=== PATIENT | female | born 1995 | race Caucasian/White ===

== ENCOUNTER 2019-04-11 14:57 | Outpatient (CLI) | payer OTHER ==
--- NOTE | 2019-04-12 20:38 | Ultrasound Report ---
Reason: TEST POSITIVE Procedure Date: 04/11/2019 Accession Number: [id number] / [id number] Procedure: US - OB First Trimester CPT Code: Final Report FULL RESULT: EXAM: FIRST TRIMESTER OBSTETRIC ULTRASOUND EXAM DATE: 04/11/2019 03:50 PM. CLINICAL HISTORY: TEST POSITIVE. LMP: 12/30/2018. COMPARISONS: None. TECHNIQUE: Transabdominal and transvaginal ultrasound examination with static image documentation. CLINICAL DATES: EGA 14 weeks 4 days with MARIANNE 10/06/2019 based on LMP. ASSESSMENT: Gestational Sac: Single intrauterine. Mean gestational sac diameter: 5.9 cm = 12 weeks. Embryo: CRL (crown-rump length) 7.14 cm = 13 weeks 2 days. Cardiac activity: 170 beats per minute. Yolk sac: Not visualized. Amniotic fluid: Within normal limits.. Placenta: Posterior placental low-lying. Inferior margin placenta 6.6 mm from the internal cervical os (image 64). Other: No perigestational fluid collection demonstrated. MATERNAL STRUCTURES: Uterus: Anteverted. Unremarkable. Cervix: Closed. Cervix length 3 cm transvaginal imaging. Right Ovary/Adnexa: The ovary measures 2.8 x 1.6 x 2.3 cm, volume 5.4 cc. Unremarkable. Left Ovary/Adnexa: The ovary measures 2.2 x 2.7 x 1.7 cm, volume 5.2 cc. Left ovary 1.5 x 1.6 x 1.6 cm corpus luteum cyst. Free Fluid: None. Other: None. IMPRESSION: 1. Single living intrauterine at EGA 13 weeks 2 days with MARIANNE 10/15/2019 based on crown-rump length, which is 1 week 2 days behind dates by LMP 12/30/2018. 2. Assigned dating is MARIANNE 10/06/2019 based on LMP. 3. Posterior low-lying placenta. RADIA
== END 2019-04-11 14:58 | disposition home or self-care (01) ==
LOC: DI 14:57 → MERGE 15:30
PROVIDERS: ATTEND Obstetrics & Gynecology
DX: Z32.01 Encounter for pregnancy test, result positive (principal); O44.41 Low lying placenta NOS or without hemorrhage, first trimester; Z3A.13 13 weeks gestation of pregnancy
CPT/HCPCS: 76801; 76817

== ENCOUNTER 2019-04-25 08:00 | Outpatient (CLI) | payer OTHER ==
[2019-04-25 21:58] LABS: TRICHOMONAS VAGINALIS DNA NEGATIVE (NEGATIVE)
== END 2019-04-25 23:59 | disposition home or self-care (01) ==
LOC: LAB.R 08:00
PROVIDERS: ATTEND Obstetrics & Gynecology
DX: Z36.89 Encounter for other specified antenatal screening (principal)
CPT/HCPCS: 87491; 87591; 87661

== ENCOUNTER 2019-04-25 13:03 | Outpatient (CLI) | payer OTHER ==
[2019-04-25 13:18] LABS: MUDS CUTOFF CONCENTRATIONS CUTOFF CONC BELOW:
[2019-04-25 13:25] LABS: BASOPHILS % (AUTO) 0.4 %; EOSINOPHILS # (AUTO) 0.1 10^3/uL (0.0-0.7); EOSINOPHILS % (AUTO) 0.9 %; HGB - HEMOGLOBIN 13.4 g/dL (12.0-16.0); LYMPHOCYTES # (AUTO) 1.7 10^3/uL (1.5-3.5); MEAN CORPUSCULAR HEMOGLOBIN 30.9 pg (27.0-31.0); MEAN CORPUSCULAR HGB CONC 35.5 g/dL (32.0-36.0); MEAN CORPUSCULAR VOLUME 87.1 fL (81.0-99.0); MEAN PLATELET VOLUME 10.7 fL (7.9-10.8); MONOCYTES # (AUTO) 0.6 10^3/uL (0.0-1.0); MONOCYTES % (AUTO) 5.1 %; NEUTROPHILS # (AUTO) 8.7 10^3/uL (1.5-6.6); NEUTROPHILS % (AUTO) 77.9 %; PLT - PLATELET COUNT 188 10^3/uL (130-450); RED BLOOD COUNT 4.33 10^6/uL (4.20-5.40); RED CELL DISTRIBUTION WIDTH 12.6 % (12.0-15.0); WHITE BLOOD COUNT 11.2 x10^3/uL (4.8-10.8)
[2019-04-25 13:27] LABS: BILIRUBIN,URINE NEGATIVE (NEGATIVE); GLUCOSE, URINE (UA) NEGATIVE (NEGATIVE); KETONES,URINE (UA) NEGATIVE (NEGATIVE); LEUKOCYTE ESTERASE, URINE NEGATIVE (NEGATIVE); NITRITE,URINE NEGATIVE (NEGATIVE); OCCULT BLOOD,URINE NEGATIVE (NEGATIVE); PROTEIN,URINE NEGATIVE (NEGATIVE); UROBILINOGEN,URINE 1 (NORMAL) E.U./dL (NORMAL)
[2019-04-25 13:44] LABS: BACTERIA,URINE Rare /HPF (None Seen); CLARITY,URINE CLEAR (CLEAR); RBC,URINE 0-5 /HPF (0-5); SQUAMOUS EPITHELIAL CELL,UR FEW Squamous (<= Few)
[2019-04-25 13:45] LABS: AMPHETAMINE SCREEN,URINE NEGATIVE (NEGATIVE); BENZODIAZEPINES SCREEN, URINE NEGATIVE (NEGATIVE); COCAINE SCREEN URINE NEGATIVE (NEGATIVE); METHADONE SCREEN, URINE NEGATIVE (NEGATIVE); METHAMPHETAMINES SCREEN, URINE NEGATIVE (NEGATIVE); OPIATE SCREEN, URINE NEGATIVE (NEGATIVE); OXYCODONE SCREEN, URINE NEGATIVE (NEGATIVE); PROPOXYPHENE SCREEN, URINE NEGATIVE (NEGATIVE); TRICYCLIC ANTIDEPRESSANT,URINE NEGATIVE (NEGATIVE)
[2019-04-26 11:33] LABS: HIV AG/AB 4TH GEN NON-REACTIVE (NON-REACTIVE)
[2019-04-26 12:42] LABS: HEPATITIS C ANTIBODY NON-REACTIVE (NON-REACTIVE)
[2019-04-27 14:23] LABS: HEPATITIS B SURFACE ANTIGEN NON-REACTIVE (NON-REACTIVE)
== END 2019-04-25 13:04 | disposition home or self-care (01) ==
LOC: LAB 13:03
PROVIDERS: ATTEND Obstetrics & Gynecology
DX: Z36.89 Encounter for other specified antenatal screening (principal)
CPT/HCPCS: 36415; 80306; 81001; 81599; 85025; 86592; 86762; 86803; 86850; 86900; 86901; 87086; 87340; 87389

== ENCOUNTER 2019-05-23 14:42 | Outpatient (CLI) | payer OTHER ==
--- NOTE | 2019-05-25 12:19 | Ultrasound Report ---
Reason: SCREENING Procedure Date: 05/23/2019 Accession Number: [id number] / [id number] Procedure: US - OB Detailed Eval CPT Code: Final Report FULL RESULT: EXAM: COMPLETE OBSTETRICAL ULTRASOUND EXAM DATE: 05/23/2019 04:50 PM. CLINICAL HISTORY: anatomic survey. COMPARISON: OB FIRST TRIMESTER 04/11/2019 3:10 PM. TECHNIQUE: Real-time sonographic evaluation of the fetus performed by the engine designer. Multiple real estate representative static images were saved for review. DATING: Established EGA 20 weeks 1 day with MARIANNE 10/09/2019 based on provided working due date. EGA 20 weeks 4 days with MARIANNE 10/06/2019 based on LMP/first ultrasound. EGA 19 weeks 6 days with MARIANNE 10/11/2019 based on the current ultrasound. GENERAL EVALUATION Ricks . Cardiac activity: 153 bpm. movement: Very active. Presentation: Variable. Placenta: Posterior position. No evidence for previa. Umbilical cord: Limited visualization of the umbilical cord, 3 vessel cord is not clearly visualized, likely due to motion. Central placental cord origin. Amniotic fluid: Subjectively normal. MVP 4.9 cm. BIOMETRY Bi-Parietal Diameter (BPD): 4.4 cm, 19 weeks 3 days. Head Circumference (HC): 17.6 cm, 20 weeks 1 day. Abdominal Circumference (AC): 14 cm, 19 weeks 3 days. Femur Length (FL): 3.4 cm, 20 weeks 4 days. Estimated Weight: 322 g, 34th percentile for 20 weeks 1 day. ANATOMY The anatomy survey is markedly limited by position and motion as well as early gestational age. The nuchal fold, profile view/nasal bone, nose and lips, open hands, four-chamber heart, kidneys, entire spine, upper and lower extremities as well as leg foot relationships are not adequately visualized. The choroid plexus, lateral ventricles, midline falx, cisterna magna, cerebellum, coronal face, stomach and situs, ventricular outflow tracts, relationship between heart, stomach and bladder, diaphragm, bladder are adequately visualized and normal. MATERNAL STRUCTURES Uterus: Unremarkable. Cervix: Long and closed. Transabdominal length 4.1 cm. Right ovary/adnexa: Unremarkable. Left ovary/adnexa: Unremarkable. Free fluid: None. IMPRESSION: 1. Ricks live intrauterine with gestational age 20 weeks 1 day based on working due date. 2. Estimated weight is within expected limits for assigned dating. 3. Limited evaluation due to early gestational age and very active fetus. Adequately visualized structures are normal. Recommend repeat imaging for anatomy survey for completion in 2 weeks. RADIA
== END 2019-05-23 14:43 | disposition home or self-care (01) ==
LOC: DI 14:42
PROVIDERS: ATTEND Obstetrics & Gynecology
DX: Z36.89 Encounter for other specified antenatal screening (principal)
CPT/HCPCS: 76811

== ENCOUNTER 2019-05-30 08:00 | Outpatient (CLI) | payer OTHER ==
[2019-05-30 20:39] LABS: CANDIDA GROUP DNA NEGATIVE (NEGATIVE); CANDIDA KRUSEI DNA NEGATIVE (NEGATIVE); TRICHOMONAS VAGINALIS DNA NEGATIVE (NEGATIVE)
== END 2019-05-30 23:59 | disposition home or self-care (01) ==
LOC: LAB.R 08:00
PROVIDERS: ATTEND Nurse Practitioner Obstetrics & Gynecology
DX: N89.8 Other specified noninflammatory disorders of vagina (principal)
CPT/HCPCS: 87661; 87801

== ENCOUNTER 2019-05-30 21:33 | Outpatient (CLI) | payer OTHER ==
--- NOTE | 2019-05-31 03:43 | Ultrasound Report ---
Reason: SCREENING, FOLLOW UP TO ANATOMY SCREEN Procedure Date: 05/30/2019 Accession Number: [id number] / [id number] Procedure: US - OB F/U or Repeat CPT Code: Final Report FULL RESULT: EXAM: FOLLOW-UP OBSTETRICAL ULTRASOUND EXAM DATE: 05/30/2019 11:50 PM. CLINICAL HISTORY: SCREENING, FOLLOW UP TO ANATOMY SCREEN. COMPARISON: 05/23/2019. TECHNIQUE: Real-time sonographic evaluation of the fetus performed by the metal turner. Multiple payable representative static images were saved for review. DATING: Established EGA 21 weeks 4 days with MARIANNE 10/06/2019 based on LMP. EGA 21 weeks 4 days with MARIANNE 10/06/2019 based on initial sonogram. GENERAL EVALUATION Ricks . Cardiac activity: 150 bpm. movement: Visualized. Presentation: Breech Placenta: Posterior position. Amniotic fluid: Normal. STACIA 16.5 cm. MVP 5.0 cm. ANATOMY 3 vessel cord, nuchal fold, profile with nasal bone, facial structures, bilateral hands, cardiac structures, kidneys, visualized spine, and extremities appear unremarkable. IMPRESSION: 1. Ricks live intrauterine with gestational age 21 weeks 4 days based on LMP. 2. Unremarkable completion of the anatomic survey. RADIA
== END 2019-05-30 21:34 | disposition home or self-care (01) ==
LOC: DI 21:33
PROVIDERS: ATTEND Obstetrics & Gynecology
DX: Z36.89 Encounter for other specified antenatal screening (principal); N89.8 Other specified noninflammatory disorders of vagina
CPT/HCPCS: 76816; 87661; 87801

== ENCOUNTER 2019-08-16 08:00 | Outpatient (CLI) | payer OTHER ==
[2019-08-16 11:47] LABS: HGB - HEMOGLOBIN 12.8 g/dL (12.0-16.0); MEAN CORPUSCULAR HEMOGLOBIN 30.8 pg (27.0-31.0); MEAN CORPUSCULAR HGB CONC 33.7 g/dL (32.0-36.0); MEAN CORPUSCULAR VOLUME 91.6 fL (81.0-99.0); MEAN PLATELET VOLUME 11.4 fL (7.9-10.8); RED BLOOD COUNT 4.15 10^6/uL (4.20-5.40); RED CELL DISTRIBUTION WIDTH 13.3 % (12.0-15.0); WHITE BLOOD COUNT 13.2 x10^3/uL (4.8-10.8)
== END 2019-08-16 23:59 | disposition home or self-care (01) ==
LOC: LAB.WCP 08:00
PROVIDERS: ATTEND Advanced Practice Midwife
DX: Z34.90 Encounter for supervision of normal pregnancy, unspecified, unspecified trimester (principal); Z36.89 Encounter for other specified antenatal screening
CPT/HCPCS: 36415; 82950; 85027; 86787; 86850

== ENCOUNTER 2019-09-13 09:30 | Outpatient (CLI) | payer OTHER ==
[2019-09-13 22:24] LABS: TRICHOMONAS VAGINALIS DNA NEGATIVE (NEGATIVE)
== END 2019-09-13 23:59 | disposition home or self-care (01) ==
LOC: LAB.R 09:30
PROVIDERS: ATTEND Advanced Practice Midwife
DX: Z34.90 Encounter for supervision of normal pregnancy, unspecified, unspecified trimester (principal); Z36.85 Encounter for antenatal screening for Streptococcus B
CPT/HCPCS: 87491; 87591; 87661; 87797

== ENCOUNTER 2019-10-25 14:32 | Outpatient (CLI) | payer OTHER ==
--- NOTE | 2019-10-25 15:49 | Labor Flowsheet ---
Labor Flowsheet Datetime Report Generated by CPN: 10/25/2019 15:49 Datetime: 10/19/2019 07:48 VITAL SIGNS NBP Sys/Alida/Mean (mmHg): 123 : 63 : 78 Pulse: 76 Datetime: 10/18/2019 20:10 SpO2 (%): 100 Datetime: 10/17/2019 19:19 Respirations: 16 Temperature (C): 37.0 Datetime: 10/17/2019 15:26 MEDICATIONS Pitocin (milliunits): Decreased to @ 150 Datetime: 10/17/2019 15:07 Stage of : Recovery UTERINE ACTIVITY Monitor Mode: External Frequency (min): 1-2 Quality: Moderate Duration (sec): 50-70 Resting Tone (Palpate): Relaxed ASSESSMENT A Monitor Mode: Telemetry FHR Baseline Rate : 140 Variability: Moderate 6-25 bpm Decelerations: Variable Category: Category II Comments: broken tracing, decels with pushing, unable to see accels. Oxygen Method: Room Air Stage 2 Comments: born at 1507 Datetime: 10/17/2019 15:05 LaborFlag: Labor Datetime: 10/17/2019 15:00 Pattern: Normal: <= 5 Contractions in 10 Minutes Datetime: 10/17/2019 14:45 Accelerations: None Datetime: 10/17/2019 14:00 Pushing Progress: Descent with Pushing; Pushing Effectively with Contractions Datetime: 10/17/2019 13:58 Membrane Status: Ruptured Membranes Rupture Method: Artificial Amniotic Fluid Color: Clear Datetime: 10/17/2019 13:45 STAGE 2 Pushing: Coached on Pushing Pushing Position: Pushing with Contractions; Pushing Lithotomy Datetime: 10/17/2019 13:29 Contraction Comments: two contractions, pushing with coaching Monitor Interventions for FHR: Ultrasound Adjusted Datetime: 10/17/2019 13:23 VAGINAL EXAM Dilatation (cm): 10.0 Station: 1 Exam by: Kelsie Fernandes Vaginal Exam Comments: complete, pushing with CNM Datetime: 10/17/2019 12:44 COMMUNICATION Communication: Provider at Bedside Provider Notified (Name): CNM Barron Communication Comments: discussed plan of care to labor down for 1 hour and then recheck cervix, ca ll provider before if needed. Datetime: 10/17/2019 12:42 Effacement (%): 100 Cervix, Position: Midposition Datetime: 10/17/2019 12:16 Monitor Interventions for UA: Jackpot Adjusted Patient Position/Activity: Left Tilt Patient Care Comments: knees together ankles on peaunut ball Datetime: 10/17/2019 10:41 Notification Reason: Status Update; Status; Labor Status Datetime: 10/17/2019 08:40 I/O Interventions: Baltazar Cath Inserted Datetime: 10/17/2019 08:38 Vaginal Bleeding: None Cervix, Consistency: Soft Datetime: 10/17/2019 08:16 PATIENT CARE IV/Blood Work: IV Bolus Given ml @ 250 Datetime: 10/17/2019 08:09 Anesthesia Level Check: T10- Umbilicus Anesthesia Comments: R side has more feeling than L, pt states she has decreased overall pain relie f Datetime: 10/17/2019 07:51 Epidural Procedure: Test Dose Datetime: 10/17/2019 07:43 PROCEDURE TIME OUT Procedure Verify: Correct Patient Identity; Accurate Procedure Consent Form; Agreement on Procedure to be Done; Correct Patient Position ANESTHESIA Anesthesia Plans: Epidural Epidural Positioning: Sitting
== END 2019-10-25 15:00 | disposition home or self-care (01) ==
LOC: WFO 14:32 → FBP 14:33 → WFO 15:00
PROVIDERS: ATTEND Obstetrics & Gynecology
DX: O92.70 Unspecified disorders of lactation (principal)
CPT/HCPCS: 99402

== ENCOUNTER 2021-07-30 08:00 | Outpatient (CLI) | payer OTHER, MEDICAID | END 2021-07-31 23:31 | disposition home or self-care (01) | LOC: LAB.N 08:00 | PROVIDERS: ATTEND Registered Nurse | DX: J06.9 Acute upper respiratory infection, unspecified (principal); Z20.822 Contact with and (suspected) exposure to COVID-19 ==

== ENCOUNTER 2021-08-06 11:24 | Outpatient (CLI) | payer OTHER, MEDICAID ==
[2021-08-06 11:46] LABS: BASOPHILS % (AUTO) 0.2 %; EOSINOPHILS # (AUTO) 0.2 10^3/uL (0.0-0.7); EOSINOPHILS % (AUTO) 1.9 %; HGB - HEMOGLOBIN 14.3 g/dL (12.0-16.0); LYMPHOCYTES # (AUTO) 2.2 10^3/uL (1.5-3.5); MEAN CORPUSCULAR HEMOGLOBIN 30.4 pg (27.0-31.0); MEAN CORPUSCULAR HGB CONC 34.9 g/dL (32.0-36.0); MEAN CORPUSCULAR VOLUME 87.2 fL (81.0-99.0); MEAN PLATELET VOLUME 10.3 fL (7.9-10.8); MONOCYTES # (AUTO) 0.4 10^3/uL (0.0-1.0); MONOCYTES % (AUTO) 4.6 %; NEUTROPHILS # (AUTO) 6.2 10^3/uL (1.5-6.6); PLT - PLATELET COUNT 213 10^3/uL (130-450); RED CELL DISTRIBUTION WIDTH 12.3 % (12.0-15.0)
[2021-08-07 04:10] LABS: HBsAG SCREEN Negative (Negative); HCV AB <0.1 s/co ratio (0.0-0.9); HIV SCREEN 4TH GENERATION Non Reactive (Non Reactive); RPR Non Reactive (Non Reactive)
[2021-08-07 08:14] LABS: VARICELLA-ZOSTER AB IGG <135 index (Immune >165)
== END 2021-08-06 11:25 | disposition home or self-care (01) ==
LOC: LAB 11:24
PROVIDERS: ATTEND Nurse Practitioner Obstetrics & Gynecology
DX: Z36.89 Encounter for other specified antenatal screening (principal)
CPT/HCPCS: 36415; 85025; 86592; 86762; 86787; 86803; 86850; 86900; 86901; 87340; 87389

== ENCOUNTER 2021-09-24 14:29 | Outpatient (CLI) | payer MEDICAID ==
--- NOTE | 2021-09-25 17:13 | Ultrasound Report ---
PROCEDURE: OB Detailed Eval INDICATIONS: SUPERVISION OF OUTSIDE/PRIOR DATING DATA: Last menstrual period (LMP): 05/07/2021. LMP-based estimated date of delivery (MARIANNE): 02/11/2022 First dating scan (date and location): 08/05/2021, outside clinic. Estimated date of delivery (MARIANNE) from first dating scan: 02/15/2022. The below data below was generated using the study generated MARIANNE of 02/15/2022 TECHNIQUE: Real-time scanning was performed of the fetus, with image documentation and biometric measurements. Endovaginal scanning: Not indicated COMPARISON: Prior study report dated 08/05/2021 FINDINGS: General: A single living intrauterine gestation is present. Presentation: Transverse/oblique Placenta: Placental position is posterior, without previa. Amniotic fluid index: 11.8 cm, normal for gestational age. heart rate: 153 beats per minute. Maternal cervical canal: 3.27 cm long; normal length is 2.5 cm or more. biometrics: Biparietal diameter: 4.25 cm, 18 weeks, 6 days Head circumference: 16.27 cm, 19 weeks, 0 days Abdominal circumference: 14.78 cm, 20 weeks, 0 day Femur length: 3.16 cm, 19 weeks, 6 days Estimated gestational age from initial scan: 19 weeks, 3 days Composite gestational age from present scan: 19 weeks, 3 days Estimated weight and percentile: 315 g, 68.8% Measurement variability in biometric dating: +/- 10 days from 12-20 weeks gestation, +/- 2 weeks from 20-30 weeks gestation, +/- 3 weeks at 30 weeks gestation or later. Anatomic survey: Neuro: Ventricles are normal at less than 10 mm. Cisterna magna is normal at 3-11 mm. Cerebellum i s normal in size and morphology. Nuchal skin fold: Normal at less than 6 mm between 14 and 20 weeks gestational age. Face: Nose and lips, facial profile are normal. Spine: Not well seen due to position. Heart: 4-chambered heart is present. The outflow tracts are not well seen on this study. Diaphragm: Diaphragm is intact. Stomach: Left-sided stomach is present. Kidneys: No hydronephrosis. Normal is less than 5 mm in 2nd trimester, less than 7 mm in 3rd trimester. Cord: 3 vessel cord has orthotopic insertion. Bladder: Normal in size. Extremities: All 4 extremities are visualized. IMPRESSION: 1. Single live intrauterine gestation with fetus in transverse/oblique presentation. Normal amount of amniotic fluid. Normal growth. Estimated weight is at 68.8%. 2. spine and outflow tracts are not well seen due to position. Rest of anatom ic survey is normal. Reviewed by: Chris Kiser MD on 09/25/2021 5:12 PM PDT Approved by: Chris Kiser MD on 09/25/2021 5:12 PM PDT Station ID: [id number]
== END 2021-09-24 14:30 | disposition home or self-care (01) ==
LOC: DI 14:29
PROVIDERS: ATTEND Nurse Practitioner Obstetrics & Gynecology
DX: Z34.02 Encounter for supervision of normal first pregnancy, second trimester (principal); Z36.89 Encounter for other specified antenatal screening

== ENCOUNTER 2021-10-06 16:37 | Outpatient (CLI) | payer MEDICAID ==
--- NOTE | 2021-10-07 16:24 | Ultrasound Report ---
PROCEDURE: OB F/U or Repeat INDICATIONS: SUPERVISION OF OUTSIDE/PRIOR DATING DATA: Last menstrual period (LMP): 05/07/2021. LMP-based estimated date of delivery (MARIANNE): 02/11/2022. First dating scan (date and location): 08/05/2021. Estimated date of delivery (MARIANNE) from first dating scan: 02/15/2022. The below data below was generated using the ultrasound MARIANNE of 02/15/2022 TECHNIQUE: Real-time scanning was performed of the fetus, with image documentation and biometric measurements. COMPARISON: OB ultrasound 09/24/2021 FINDINGS: General: A single living intrauterine gestation is present. Presentation: Vertex Placenta: Placental position is posterior, without previa. Amniotic fluid index: 14 cm, within normal limits for gestational age. Largest pocket 3.7 cm heart rate: 167 beats per minute. Maternal cervical canal: Not assessed biometrics: Estimated gestational age from initial scan: 21 weeks 1 day Other: Outflow tracts and spine are better visualized on current exam and appear to be within normal limits. IMPRESSION: Single live intrauterine with ultrasound gestational age of 21 weeks 1 day. spine and outflow tracts appear to be within normal limits. Reviewed by: Christina Amato MD on 10/07/2021 4:23 PM PDT Approved by: Christina Amato MD on 10/07/2021 4:23 PM PDT Station ID: [id number]
== END 2021-10-06 16:38 | disposition home or self-care (01) ==
LOC: DI 16:37
PROVIDERS: ATTEND Nurse Practitioner Obstetrics & Gynecology
DX: Z34.02 Encounter for supervision of normal first pregnancy, second trimester (principal); Z36.89 Encounter for other specified antenatal screening

== ENCOUNTER 2021-11-26 10:33 | Outpatient (CLI) | payer MEDICAID ==
[2021-11-26 11:46] LABS: HCT - HEMATOCRIT 36.2 % (37.0-47.0); HGB - HEMOGLOBIN 12.7 g/dL (12.0-16.0); MEAN CORPUSCULAR HEMOGLOBIN 32.1 pg (27.0-31.0); MEAN CORPUSCULAR HGB CONC 35.1 g/dL (32.0-36.0); MEAN CORPUSCULAR VOLUME 91.4 fL (81.0-99.0); MEAN PLATELET VOLUME 10.6 fL (7.9-10.8); RED BLOOD COUNT 3.96 10^6/uL (4.20-5.40); RED CELL DISTRIBUTION WIDTH 13.4 % (12.0-15.0); WHITE BLOOD COUNT 12.3 x10^3/uL (4.8-10.8)
== END 2021-11-26 10:34 | disposition home or self-care (01) ==
LOC: LAB 10:33
PROVIDERS: ATTEND Nurse Practitioner Obstetrics & Gynecology
DX: O99.891 Other specified diseases and conditions complicating pregnancy (principal); R42 Dizziness and giddiness; Z36.9 Encounter for antenatal screening, unspecified
CPT/HCPCS: 36415; 82950; 85027

== ENCOUNTER 2022-02-11 14:47 | Inpatient (IN) | payer MEDICAID ==
[2022-02-11] MEDS ORDERED: LABETALOL 20 MG/4 ML SYRINGE IVP PRN ×3 (16:06)
[2022-02-11] MEDS ORDERED: fentaNYL 100 MCG/2 ML VIAL IVP PRN (16:06)
[2022-02-11] MEDS ORDERED: hydrALAZINE INJ 20 MG/ML VIAL IVP PRN ×2 (16:06)
[2022-02-11] MEDS ORDERED: TERBUTALINE 1 MG/ML VIAL SUBQ PRN (16:06)
[2022-02-11] MEDS ORDERED: CARBOPROST TROMETHAMINE 250 MCG/ML AMP IM PRN (16:06)
[2022-02-11] MEDS ORDERED: METHYLERGONOVINE 0.2 MG/ML VIAL IM PRN (16:06)
[2022-02-11] MEDS ORDERED: OXYTOCIN/SODIUM CHLORIDE 500 ML IV PRN (16:06)
[2022-02-11] MEDS ORDERED: miSOPROStoL 200 MCG TABLET BC PRN (16:06)
[2022-02-11] MEDS ORDERED: OXYTOCIN 10 UNIT/ML VIAL IM PRN (16:06)
[2022-02-11] MEDS ORDERED: TRANEXAMIC ACID IN NACL 1,000 MG/100 ML BAG IV PRN (16:06)
[2022-02-11] MEDS ORDERED: SODIUM CHLORIDE FLUSH 0.9% 10 ML SYRINGE IVP PRN (16:06)
[2022-02-11] MEDS ORDERED: miSOPROStoL 200 MCG TABLET PR PRN (16:06)
[2022-02-11] MEDS ORDERED: lidocaine 1% 20 ML MDV ID PRN (16:06)
[2022-02-11] MEDS ORDERED: NIFEdipine 10 MG CAPSULE PO PRN (16:06)
[2022-02-11] MEDS: LACTATED RINGERS 1,000 ML IV SCH (16:38)
[2022-02-11 16:42] LABS: BASOPHILS # (AUTO) 0.1 10^3/uL (0.0-0.1); BASOPHILS % (AUTO) 0.3 %; EOSINOPHILS # (AUTO) 0.2 10^3/uL (0.0-0.7); HCT - HEMATOCRIT 38.3 % (37.0-47.0); HGB - HEMOGLOBIN 13.3 g/dL (12.0-16.0); LYMPHOCYTES # (AUTO) 2.4 10^3/uL (1.5-3.5); LYMPHOCYTES % (AUTO) 13.1 %; MEAN CORPUSCULAR HEMOGLOBIN 30.6 pg (27.0-31.0); MEAN CORPUSCULAR HGB CONC 34.7 g/dL (32.0-36.0); MONOCYTES # (AUTO) 1.1 10^3/uL (0.0-1.0); MONOCYTES % (AUTO) 6.2 %; NEUTROPHILS # (AUTO) 14.3 10^3/uL (1.5-6.6); NEUTROPHILS % (AUTO) 78.4 %; PLT - PLATELET COUNT 201 10^3/uL (130-450); RED BLOOD COUNT 4.35 10^6/uL (4.20-5.40); RED CELL DISTRIBUTION WIDTH 13.8 % (12.0-15.0); WHITE BLOOD COUNT 18.3 x10^3/uL (4.8-10.8)
[2022-02-11] MEDS: SODIUM CHLORIDE FLUSH 0.9% 10 ML SYRINGE IVP SCH (16:42)
[2022-02-11] MEDS ORDERED: ROPIVACAINE 0.2% 200 MG/100 ML BAG EP ONE (16:55)
[2022-02-11] MEDS ORDERED: METOCLOPRAMIDE 10 MG/2 ML VIAL IVP PRN (17:46)
[2022-02-11] MEDS ORDERED: ePHEDrine 50 MG/ML VIAL IVP PRN (17:46)
[2022-02-11] MEDS ORDERED: ONDANSETRON 4 MG/2 ML VIAL IVP PRN (17:46)
[2022-02-11] MEDS ORDERED: NALBUPHINE 10 MG/ML AMP IVP PRN (17:46)
[2022-02-11] MEDS ORDERED: ROPIVACAINE 0.2% 200 MG/100 ML BAG EP PRN (17:46)
[2022-02-11] MEDS ORDERED: NALOXONE 0.4 MG/ML VIAL IVP PRN (17:46)
[2022-02-11] MEDS ORDERED: diphenhydrAMINE INJ 50 MG/ML VIAL IVP PRN (17:46)
--- NOTE | 2022-02-11 17:48 | ANESTHESIA ---
Pre-Anesthesia VS, & Labs - Diagnosis labor - Procedure epidural Vital Signs: Temp Pulse Resp BP Pulse Ox O2 Flow Rate 36.7 C 109 H 17 123/71 100 02/11/22 15:50 02/11/22 15:01 02/11/22 15:01 02/11/22 15:01 02/11/22 15:01 Height: 5 ft 4 in Weight (kg): 89.81 kg Body Mass Index: 34.0 BMI Classification: Obese - NPO >8 hours - Is Patient ?: Yes - Lab Results Current Lab Results: Laboratory Tests 02/11/22 16:30: WBC 18.3 H, RBC 4.35, Hgb 13.3, Hct 38.3, MCV 88.0, MCH 30.6, MCHC 34.7, RDW 13.8, Plt Count 201, MPV 12.0 H, Neut # (Auto) 14.3 H, Lymph # (Auto) 2.4, Kent # (Auto) 1.1 H, Eos # (Auto) 0.2, Baso # (Auto) 0.1, Absolute Nucleated RBC 0.00, Nucleated RBC % 0.0 Fish Bones: 02/11/22 16:30 Home Medications and Allergies Active Medications Carboprost Tromethamine (Carboprost Tromethamine 250 Mcg/Ml Amp) 250 mcg IM .ONCE PRN PRN Reason: Hemorrhage Fentanyl (Fentanyl 100 Mcg/2 Ml Vial) 50 mcg IVP Q1H PRN PRN Reason: Severe Pain (score 7-10) Hydralazine HCl (Hydralazine Inj 20 Mg/Ml Vial) 5 - 10 mg IVP Q20M PRN; Protocol PRN Reason: SBP> or= 160 OR DBP> or= 110 Hydralazine HCl (Hydralazine Inj 20 Mg/Ml Vial) 10 mg IVP .ONCE PRN; Protocol PRN Reason: SBP> or= 160 OR DBP> or= 110 Oxytocin/Sodium Chloride (Pitocin/Sodium Chloride) 500 mls @ 999 mls/hr IV PRN PRN; Protocol PRN Reason: POST- HEMORR PREVENTION Tranexamic Acid (Tranexamic 1,000 Mg/100ml-Nacl) 1,000 mg in 100 mls @ 600 mls/hr IV Q30M PRN PRN Reason: EBL >1200mL and within 3hr Lactated Ringer's (Lr) 1,000 mls @ 125 mls/hr IV .Q8H [facility] Last Admin: 02/11/22 16:38 Dose: 125 mls/hr Labetalol HCl (Labetalol 20 Mg/4 Ml Syringe) 20 - 80 mg IVP Q10M PRN; Protocol PRN Reason: SBP> or= 160 OR DBP> or= 110 Labetalol HCl (Labetalol 20 Mg/4 Ml Syringe) 20 mg IVP .ONCE PRN; Protocol PRN Reason: SBP> or= 160 OR DBP> or= 110 Labetalol HCl (Labetalol 20 Mg/4 Ml Syringe) 20 - 40 mg IVP Q10M PRN; Protocol PRN Reason: SBP> or= 160 OR DBP> or= 110 Lidocaine HCl (Lidocaine 1% 20 Ml Mdv) 20 ml ID .ONCE PRN PRN Reason: PERINEAL REPAIR Stop: 02/14/22 16:07 Methylergonovine Maleate (Methylergonovine 0.2 Mg/Ml Vial) 0.2 mg IM .ONCE PRN PRN Reason: Hemorrhage Misoprostol (Misoprostol 200 Mcg Tablet) 600 mcg BC .ONCE PRN PRN Reason: Hemorrhage Misoprostol (Misoprostol 200 Mcg Tablet) 800 mcg MI .ONCE PRN PRN Reason: Hemorrhage Nifedipine (Nifedipine 10 Mg Capsule) 10 - 20 mg PO Q20M PRN; Protocol PRN Reason: SBP> or= 160 OR DBP> or= 110 Oxytocin (Oxytocin 10 Unit/Ml Vial) 10 unit IM .ONCE PRN PRN Reason: Step One if no IV access. Sodium Chloride (Sodium Chloride Flush 0.9% 10 Ml Syringe) 10 ml IVP PRN PRN PRN Reason: NEEDED PER PROVIDER ORDERS Sodium Chloride (Sodium Chloride Flush 0.9% 10 Ml Syringe) 10 ml IVP Q8H [facility] Last Admin: 02/11/22 16:42 Dose: 10 ml Terbutaline Sulfate (Terbutaline 1 Mg/Ml Vial) 0.25 mg SUBQ .ONCE PRN PRN Reason: Tachystole Allergies/Adverse Reactions: Allergies Allergy/AdvReac Type Severity Reaction Status Date / Time No Known Drug Allergies Allergy Verified 10/17/19 06:20 Anes History & Medical History - Anesthetic History Anesthesia Complications: reports: No previous complications - Medical History Cardiovascular: reports: None Pulmonary: reports: None Gastrointestinal: reports: None Urinary: reports: None Neuro: reports: None Musculoskeletal: reports: None Endocrine/Autoimmune: reports: None Blood Disorders: reports: None Skin: reports: None Smoking Status: Never smoker History of Cancer?: No - Surgical History Dermatologic: reports: Other (mole removal) Exam General: Alert, Oriented x3 Dental: WNL Mouth Opening: Greater than 4 Fingerbreadths Neck Mobility: Normal Mallampati classification: II Thyromental Distance: greater than 6 cm Respiratory: Lungs clear Cardiovascular: Regular rate Plan Anesthesia Type: Epidural Consent for Procedure(s) Verified and Reviewed: Yes Code Status: Attempt Resuscitation ASA classification: 2-Mild systemic disease Is this case an emergency?: No
--- NOTE | 2022-02-11 18:30 | DELIVERY NOTE ---
Delivery Note - Labor Labor: positive: Augmented by ARM - Infant Delivery Method Delivery Method: positive: Spontaneous vaginal delivery - Presentation Presentation: positive: Vertex, JENNA - left occiput anterior - Nuchal Cord Nuchal Cord: positive: None - Amniotic Fluid Description Amniotic Fluid Description: positive: Clear - Episiotomy Type Episiotomy Type: positive: None - Laceration Laceration: positive: None - Delivery Outcome Delivery Outcome: positive: Livebirth - : positive: Placed in direct skin contact with mother, Stimulated, Warmed, Revillo used Drew sex: positive: Female - Cord Cord: positive: 3 vessels - Placenta Placenta: positive: Intact, Spontaneous - Estimated Blood Loss Estimated Blood Loss (in cc): 100 - Post Delivery Events Post Delivery Events: positive: No post delivery events - Delivery Comments (Free Text/Narrative) Delivery Comments (Free Text/Narrative): Labor: This 26yo @ 40.0wks gestation by LMP c/w 12wk U/S who presented on 02/11/2022 with c/o contractions. She was noted to be 3-4/80/-1 and vertex with intact membranes and she was found to contract every 2-4 minutes with soft resting tone. Epidural placed upon maternal request. Precipitous labor course. AROM @ 1747 was noted to be a moderate amount of clear fluid. Pt progressed to c/c/+1 with spontaneous urge to push @ 1756. : Normal SVB of viable female infant on 02/11/2022 @ 1801. Nuchal cord x 1 was reduced. The was placed on maternal abdomen, stimulated, dried, and placed skin to skin. Apgars were 9/10 at 1 and 5 minutes respectively. Pitocin administered via IV for hemostasis. The umbilical cord was allowed to stop pulsating at which time it was doubly clamped by CNM and cut by FOB. Cord blood was obtained. 3VC. Fundal massage and gentle cord traction applied for active management of the third stage. Placenta delivered spontaneously and intact at 1807. EBL 100mL. Fourth stage: Uterine fundus firm and there is no excessive bleeding. The perineum, vagina, and cervix were inspected and noted to be intact. initiated. Family bonding well. Both mother and baby were left in stable condition.
[2022-02-11] MEDS ORDERED: WITCH HAZEL/GLYCERIN 1 PAD TOP PRN (18:37)
[2022-02-11] MEDS ORDERED: HYDROCORTISONE 1% CREAM 28 GM TUBE PR PRN (18:37)
--- NOTE | 2022-02-11 18:59 | HISTORY & PHYSICAL EXAMINATION ---
Admit History - Visit Reason Visit Reason: Contractions - : 2 Parity: 1 Premature: 0 Ectopic: 0 : 1 Care: positive: [facility] Risk/History: positive: None Complications This : positive: None Smoking Status: Never smoker - Mother's Labs Mother's Blood Type: positive: O Mother's RH: positive: Positive GBS: positive: Group B Step Negative Rubella Status: positive: Immune Meds/Allgy - Allergies Allergies/Adverse Reactions: Allergies Allergy/AdvReac Type Severity Reaction Status Date / Time No Known Drug Allergies Allergy Verified 10/17/19 06:20 Review of Systems - Constitutional Constitutional: denies: Fatigue, Fever, Chills, Malaise - Eyes Eyes: denies: Blurred vision, Spots in vision, Dipolpia - Cardiovascular Cariovascular: denies: Irregular heart rate, Palpitations, Chest pain, Edema - Respiratory Respiratory: denies: Cough, Wheezing, SOB at rest - Gastrointestinal Gastrointestinal: denies: Constipation, Diarrhea, Nausea, Vomiting - Genitourinary Genitourinary: denies: Dysuria - Integumentary Integumentary: denies: Rash, Pruritis - Neurological Neurological: denies: Headache Physical - Abdominal Exam Vital Signs: Temp Pulse Resp BP Pulse Ox O2 Flow Rate 36.7 C 109 H 17 123/71 100 02/11/22 15:50 02/11/22 15:01 02/11/22 15:01 02/11/22 15:01 02/11/22 15:01 Contraction Frequency (min/apart): 2-4 Contraction Intensity: positive: Strong Uterine Resting Tone: positive: Soft - Monitoring Heart Rate Baseline: 150 Strip Review: positive: Category I - Presentation Presentation: positive: Vertex - Vaginal Exam Membranes: positive: Membranes intact Dilation (in cm): 3-4 Effacement (%): 80 Station: positive: -1 Cervical Position: positive: Midposition - Speculum Exam Speculum Exam Performed: positive: No Plan for Labor - Plan For Labor I expect patient to be DC'd or transferred within 96 hours.: Yes Plan for Labor: HPI: This 26yo @ 40.0wks gestation by LMP c/w 12.6wk U/S presented on 02/11/2022 with c/o contractions. She was found to contract every 2-4 minutes with soft resting tone and SVE was 3-4/80/-1 and vertex with intact membranes. She denies vaginal bleeding or leakage of fluid and reports +FM. She has been a patient of [facility] for the duration of her which has remained uncomplicated. She will be admitted to [facility] for expectant management. She is supported by her mom and her . Dating criteria: LMP: 05/07/2021 Initial U/S @ 12.6wks c/w LMP dating Serial exams - agree PMHx: no significant Surgical Hx: none Family hx: Stroke- PGF Social Hx: to Dawson and they have a 2 year old daughter named Tammi. 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 Never smoker. No ETOH or IVDA. course: O positive, antibody negative Rubella immune; Varicella non-immune Initial U/S @ 12.6wks c/w LMP dating Genetic screening - declined FAS WNL with the exception of poor visualization of spine and cardiac outflow tracts. Posterior placenta, no previa. 3VC. Size c/w dating. Completion U/S WNL Covid - unvaccinated, declined Influenza - declined Tdap - declined Glucola 115 GBS negative Assessment: 26yo @ 40.0wks gestation by LMP c/w 12.6wk U/S Early labor GBS neg FHR Category I Plan: Admit for [facility] for expectant management. Consider AROM with next SVE. Continuous monitoring. Jacuzzi PRN. Nitrous oxide PRN. Epidural per maternal request. Anticipate .
[2022-02-11] MEDS: ACETAMINOPHEN 500 MG TABLET PO SCH (20:37)
[2022-02-11] MEDS: IBUPROFEN 800 MG TABLET PO SCH (20:38)
[2022-02-11] MEDS ORDERED: DOCUSATE SODIUM 100 MG CAPSULE PO SCH (21:00)
[2022-02-12] MEDS: LACTATED RINGERS 1,000 ML IV SCH (08:54)
[2022-02-12] MEDS: ACETAMINOPHEN 500 MG TABLET PO SCH (08:54)
[2022-02-12] MEDS: IBUPROFEN 800 MG TABLET PO SCH ×2 (08:54→08:55)
[2022-02-12] MEDS: SODIUM CHLORIDE FLUSH 0.9% 10 ML SYRINGE IVP SCH (08:54)
--- NOTE | 2022-02-12 10:38 | Discharge Plan ---
Discharge Plan Problem Reviewed?: Yes Disposition: Home, Self Care Condition: Good Diet: Regular Activity Restrictions: No Restrictions Shower Restrictions: No Driving Restrictions: No Weight Bearing: Full Weight Instruction Topics: Vaginal After No Smoking: If you smoke, Please STOP! Call for help. Follow-up with: Josefina Baker CNM, ARNP [Provider Admit Priv/Credential] - 1 Week (Phone visit Wednesday, February 18 @ 12:45pm with Josefina Baker.)
--- NOTE | 2022-02-12 10:45 | DISCHARGE SUMMARY ---
Discharge Summary Condition at Discharge: Good Discharge Disposition: 01 Home, Self Care - HOSPITAL COURSE Hospital Course: Date of Admission: 02/11/2022 Date of Discharge: 02/12/2022 Diagnosis on Admission: 1. 26yo @ 40.0wks gestation 2. Active labor 3. GBS negative 4. FHR Category I Diagnosis on Discharge: 1. 26yo PPD#1 s/p TSVD viable female 2. 3. Normal recovery Brief History: She is a patient of [facility] who presented on 02/11/2022 with c/o contractions and was noted to be in early labor. She was admitted for expe ctant management and received and epidural per her request. She progressed rapidly and spontaneously to spontaneously deliver a viable female on 02/11/2022 at 1801. Apgars were 9/10 at 1 and 5 minutes respectively. EBL 100mL. Perineum, vagina and cervix were inspected and noted to be intact. She has been doing well in her course. She is ambulating and tolerating a regular diet. She is urination without difficulty and her lochia is normal. Her pain is well controlled with oral medications. She is without difficulty and bonding well with her baby. She will be discharged home today on day #1 with instructions to continue taking her vitamin while and to continue taking ibuprofen and tylenol over the counter as needed for pain management. She intends to follow up with myself at [facility] in 1 week or sooner if needed. She has been given precautions to call if she has any worsening fevers, chills, abdominal pain, increased vaginal bleeding or foul smelling vaginal lochia. Physical exam: Normocephalic, atraumatic. Heart RRR w/o M/G/R, lungs CTAB, abdomen soft and nontender with fundus firm at U, perineum intact, light lochia rubra, bilateral LE's trace edema. Mood is good. - ALLERGIES Allergies/Adverse Reactions: Allergies Allergy/AdvReac Type Severity Reaction Status Date / Time No Known Drug Allergies Allergy Verified 10/17/19 06:20 - LABS Result Diagrams: 02/11/22 16:30
[2022-02-12 17:26] VITALS: BP 117/64
--- NOTE | 2022-02-12 19:14 | Labor Flowsheet ---
Labor Flowsheet Datetime Report Generated by CPN: 02/12/2022 19:13 Datetime: 02/12/2022 17:11 VITAL SIGNS NBP Sys/Alida/Mean (mmHg): 117 : 64 : 75 Pulse: 91 Datetime: 02/11/2022 19:15 Stage of : Recovery Pain Presence: None/Denies Datetime: 02/11/2022 18:45 Respirations: 16 SpO2 (%): 100 Datetime: 02/11/2022 18:33 PAIN Pain Scale: 0 Datetime: 02/11/2022 18:04 LaborFlag: Labor Datetime: 02/11/2022 18:00 UTERINE ACTIVITY Monitor Mode: External Frequency (min): 2-3 Quality: Strong Duration (sec): 40-80 Pattern: Normal: <= 5 Contractions in 10 Minutes Resting Tone (Palpate): Relaxed ASSESSMENT A Monitor Mode: Telemetry FHR Baseline Rate : 135 Variability: Moderate 6-25 bpm Accelerations: 15X15 Decelerations: None Category: Category I PATIENT CARE Oxygen Method: Room Air STAGE 2 Pushing: Urge to Push Pushing Position: Pushing with Contractions Pushing Progress: Descent with Pushing Datetime: 02/11/2022 17:56 Pain Assessment Comments: urge to push. brooks john at bs VAGINAL EXAM Dilatation (cm): 10.0 Exam by: +1 Datetime: 02/11/2022 17:52 Anesthesia Level Check: T10- Umbilicus Datetime: 02/11/2022 17:47 Effacement (%): 100 Station: 0 Membrane Status: Ruptured Membranes Rupture Method: Artificial Amniotic Fluid Color: Clear Amniotic Fluid Amount: Moderate Cervix, Consistency: Soft Cervix, Position: Anterior Datetime: 02/11/2022 17:45 FHR Baseline Changes: No Baseline Change Datetime: 02/11/2022 17:44 COMMUNICATION Communication: Provider at Bedside Communication Comments: Brooks John CNM at bedside Datetime: 02/11/2022 17:21 Temperature (C): 36.7 Datetime: 02/11/2022 17:19 Epidural Procedure Other: Pump Started; Single Dose Datetime: 02/11/2022 17:16 Patient Position/Activity: Right Tilt Datetime: 02/11/2022 17:15 Comments: pt sitting up for epidural placement, unable to continous monitor baby due to maternal po sition. audible at 140s Datetime: 02/11/2022 17:11 Epidural Procedure: Test Dose Datetime: 02/11/2022 17:00 Pain Coping: Breathing Through Contractions Datetime: 02/11/2022 16:57 PROCEDURE TIME OUT Procedure Verify: Correct Patient Identity; Accurate Procedure Consent Form; Agreement on Procedure to be Done; Correct Patient Position; Addressed Need to Administer Antibiotics or Fluids for Irrigat ion; Safety Precautions Based on Patient History or Medication Use ANESTHESIA Anesthesia Plans: Epidural Epidural Positioning: Sitting Datetime: 02/11/2022 16:40 Anesthesia Comments: Malaika Carney notified of patient request for epidural
--- NOTE | 2022-02-17 09:25 | PROVIDER PROGRESS NOTE ---
- HPI Chief Complaint: Labor Check Current : Current EDU 02/11/22 Gestation 40 Weeks and 0 Days 2 Para 1 Vital Signs Temperature 36.7 C 02/11/22 15:01 Heart Rate 109 H 02/11/22 15:01 Respiratory Rate 17 02/11/22 15:01 Blood Pressure 123/71 02/11/22 15:01 O2 Saturation 100 02/11/22 15:01 Temperature 36.7 C 02/12/22 16:00 Heart Rate 89 02/12/22 16:00 Respiratory Rate 16 02/12/22 16:00 Blood Pressure 117/64 02/12/22 16:00 O2 Saturation 100 02/12/22 16:00 If not protocol: Oxygen Flow, liters/minute - Procedures OB Procedure Performed: NST Diagnosis/Indication for NST: Other NST Procedure: NST Procedure Start Date 02/11/22 Start Time 15:00 Stop Time 15:30 Vibroacoustic Stimulation Used No Patient States Movement Yes - Plan Plan: Deonna presents to [facility] with c/o contractions. SVE 3-4/80/-1 and vertex with intact membranes and she was found to contract every 2-4 minutes with soft resting tone. NST reactive. FHR baseline 140s, moderate variability, + accels, no decels Contractions palpate moderate every 2-4 minutes with soft resting tone. Pt elects to walk x 1 hour and following this she requests epidural with increased intensity of contractions. SVE deferred and pt admitted for management.
== END 2022-02-12 19:13 | disposition home or self-care (01) | DRG 807 ==
LOC: WFO 14:47 → FBP 14:51 → WFO 16:05 → FBP 16:06 → OBSVTOIN 16:07
PROVIDERS: ADMIT Nurse Practitioner Obstetrics & Gynecology; ATTEND Nurse Practitioner Obstetrics & Gynecology
PROC: 10E0XZZ Delivery of Products of Conception, External Approach (ICD-10-PCS; principal; 2022-02-11)
PROC: 10907ZC Drainage of Amniotic Fluid, Therapeutic from Products of Conception, Via Natural or Artificial Opening (ICD-10-PCS; 2022-02-11)
DX: O69.81X0 Labor and delivery complicated by cord around neck, without compression, not applicable or unspecified (principal); Z37.0 Single live birth; Z3A.40 40 weeks gestation of pregnancy; Z28.310 Unvaccinated for COVID-19; O99.214 Obesity complicating childbirth
CPT/HCPCS: 59025; 85025; 99215; A9270; J7120

== ENCOUNTER 2023-02-11 10:57 | Outpatient (CLI) | payer MEDICAID ==
--- NOTE | 2023-02-11 13:42 | XRAY Report ---
PROCEDURE: Chest 2 View X-Ray INDICATIONS: ACUTE UPPER RESPIRATORY INFECTION TECHNIQUE: 2 views of the chest were acquired. COMPARISON: None. FINDINGS: Surgical changes and devices: None. Lungs and pleura: No pleural effusions or pneumothorax. Lungs are clear. Mediastinum: Mediastinal contours appear normal. Heart size is normal. Bones and chest wall: No suspicious bony lesions. Overlying soft tissues appear unremarkable. IMPRESSION: No acute cardiopulmonary process. Reviewed by: Ki Iqbal on 02/11/2023 12:40 PM [facility] Approved by: Ki Iqbal on 02/11/2023 12:40 PM [facility] Station ID: [id number]
== END 2023-02-11 23:59 | disposition home or self-care (01) ==
LOC: DI.N 10:57
PROVIDERS: ATTEND Nurse Practitioner
DX: J06.9 Acute upper respiratory infection, unspecified (principal)